=== PATIENT | male | born 1950 | race Caucasian/White ===

== ENCOUNTER 2018-10-30 08:44 | Day surgery (SDC) | payer MEDICARE, MEDICAID ==
[~2018-10-30] VITALS: Ht 170.2 cm; Wt 93.2 kg
[~2018-10-30 08:44] MED LIST: [UNRECOGNIZED DRUG - OTHER]
[2018-10-30] MEDS ORDERED: MIDAZolam 5mg/5ml vial ONE (09:01)
[2018-10-30] MEDS ORDERED: fentaNYL/PF 50MCG/1 ML 2ML syringe ONE (09:01)
[2018-10-30] MEDS ORDERED: LIDOcaine Viscous 15ml cup ONE (09:01)
[2018-10-30] MEDS ORDERED: AMLO5TAB PO (09:07)
[2018-10-30] MEDS ORDERED: LISI-600 PO (09:07)
[2018-10-30] MEDS ORDERED: TAMS0.4C32 PO (09:08)
[2018-10-30 09:25] VITALS: BP 131/87
[2018-10-30 11:06] VITALS: BP 108/68
[2018-10-30 11:16] VITALS: BP 119/74
[2018-10-30 11:25] VITALS: BP 111/74
[2018-10-30 11:35] VITALS: BP 125/61
== END 2018-10-30 11:50 | disposition home or self-care (01) ==
LOC: GI LAB 08:44
PROVIDERS: ATTEND Internal Medicine Gastroenterology
DX: K29.50 Unspecified chronic gastritis without bleeding (principal); K21.0 Gastro-esophageal reflux disease with esophagitis; K44.9 Diaphragmatic hernia without obstruction or gangrene; K22.2 Esophageal obstruction
CPT/HCPCS: 43239; 43450; J2250; J3010; J7030; 88305; 88312; 88342; 99152; A4620

== ENCOUNTER 2023-03-12 13:04 | Inpatient (IN) | payer MEDICARE, MEDICAID ==
[~2023-03-12] VITALS: Ht 172.7 cm; Wt 92.0 kg
[~2023-03-12 13:04] MED LIST changes: +AMLO5TAB PO; +LISI20TA28 PO; +TAMS0.4C32 PO; -[UNRECOGNIZED DRUG - OTHER]
[2023-03-12 13:45] LABS: BASOPHILS # (AUTO) 0.1 X10'3 (0-0.2); BASOPHILS % (AUTO) 0.6 % (0-1); EOSINOPHILS # (AUTO) 0.2 X10'3 (0-0.9); EOSINOPHILS % (AUTO) 2.2 % (0-6); HEMATOCRIT 41.2 % (42.0-52.0); HEMOGLOBIN 13.8 g/dl (14.0-17.9); LYMPHOCYTES # (AUTO) 1.6 X10'3 (1.1-4.8); LYMPHOCYTES % (AUTO) 16.5 % (21-51); MEAN CORPUSCULAR HEMOGLOBIN 29.9 PG (27.0-31.0); MEAN CORPUSCULAR HGB CONC 33.5 g/dL (33.0-36.5); MEAN CORPUSCULAR VOLUME 89.2 FL (78-98); MEAN PLATELET VOLUME 7.6 FL (7.4-10.4); MONOCYTES # (AUTO) 0.6 X10'3 (0-0.9); MONOCYTES % (AUTO) 6.5 % (2-12); NEUTROPHILS # (AUTO) 7.2 X10'3 (1.8-7.7); NEUTROPHILS % (AUTO) 74.2 % (42-75); PLATELET COUNT 262 X10'3 (140-440); RED BLOOD COUNT 4.62 X10'6 (4.70-6.10); RED CELL DISTRIBUTION WIDTH 14.4 % (11.5-14.5); WHITE BLOOD COUNT 9.7 X10'3 (4.5-11.0)
--- NOTE | 2023-03-12 13:53 | NUR ---
WHILE PERFORMEING GENERAL ASSESSMENT PT. WENT INTO HR OF 160-170'S. ASYMPTOMATIC DENIES ANY CP OR SOB. DR CABAN NOTIFIED
[2023-03-12 14:02] LABS: ALANINE AMINOTRANSFERASE 33 U/L (12-78); ALBUMIN/GLOBULIN RATIO 1.2 (1.1-1.5); ALKALINE PHOSPHATASE 76 IU/L (46-116); ANION GAP 11 (8-16); ASPARTATE AMINO TRANSFERASE 28 U/L (10-37); BILIRUBIN,TOTAL 0.7 MG/DL (0.1-1.0); BLOOD UREA NITROGEN 22 MG/DL (7-18); BUN/CREATININE RATIO 16.7 (10.0-20.0); CALCIUM 9.9 MG/DL (8.5-10.1); CHLORIDE 103 MMOL/L (99-107); CREATININE 1.32 MG/DL (0.60-1.10); GLUCOSE 104 MG/DL (70-104); POTASSIUM 4.3 MMOL/L (3.5-5.1); SODIUM 136 MMOL/L (135-145); TOTAL CARBON DIOXIDE 22.5 MMOL/L (24-32); TOTAL PROTEIN 7.4 G/DL (6.4-8.2); eGFR 53 ML/MIN
[2023-03-12] MEDS ORDERED: PERFLUTREN PROTEIN-A MICROSPHR (Optison) 0.22 MG/ML 3ML VIAL IV ONE (15:00)
[2023-03-12] MEDS ORDERED: potassium Cl 20 mEq SR tablet PO PRN ×2 (15:00)
[2023-03-12] MEDS ORDERED: magnesium 4gm in 100ml NS 100 ML IV PRN (15:00)
[2023-03-12] MEDS ORDERED: magnesium 2GM in 50ml NS 50 ML IV PRN (15:00)
[2023-03-12] MEDS ORDERED: acetaminophen 325mg tablet PO PRN (15:00)
[2023-03-12] MEDS ORDERED: mag hydrox/Alum hydrox/simeth 30ml oral suspension PO PRN (15:00)
[2023-03-12] MEDS ORDERED: magnesium Cl slow-release 64mg tablet PO PRN (15:00)
[2023-03-12] MEDS ORDERED: potassium Cl 40MEQ/1/2NS 520ml 520 ML IV PRN (15:00)
[2023-03-12] MEDS ORDERED: diltiazem-NS 100mg/100ml 100 ML IV ONE (15:00)
[2023-03-12] MEDS ORDERED: ondansetron/PF 4mg/2ml inj IV PRN (15:00)
[2023-03-12] MEDS ORDERED: diltiazem 5mg/ml 5ml inj. IV ONE (15:00)
[2023-03-12] MEDS ORDERED: aspirin 81mg tab.chew PO ONE (15:00)
[2023-03-12] MEDS ORDERED: magnesium hydroxide 30ml (MOM) UD suspension PO PRN (15:00)
--- NOTE | 2023-03-12 18:54 | NUR ---
pt eating dinner.
[2023-03-12] MEDS: K and/or MAG REPLACEMENT MC SCH (19:38)
[2023-03-12] MEDS: docusate sod 100mg capsule PO SCH (20:00)
[2023-03-12] MEDS: aspirin 325mg tablet, delayed-release (Ecotrin) PO SCH (20:49)
[2023-03-12 22:35] VITALS: BP 147/89; PULSE 78; RESP 25; TEMP 98.5; O2SAT 96
[2023-03-12 22:56] VITALS: RESP 25; O2SAT 96
[2023-03-12 23:00] VITALS: BP 136/76; PULSE 76; RESP 13
[2023-03-12 23:30] VITALS: BP 144/80; PULSE 69; RESP 20
[2023-03-13] VITALS (16 sets, daily range): BP systolic 109–143; BP diastolic 55–85; PULSE 60–105; RESP 11–33; TEMP 97.5–98; O2SAT 96–98
--- NOTE | 2023-03-13 00:36 | NUR ---
PAGER ID: [phone] MESSAGE: Shyam Gracia in [place] [id number] who is on cardizem drip for A flutter, is now SR with hr in the 60s and b/p in the 110s. drip has been stopped. Should i continue or hold it. Jazmín .u [id number]. 's order via phone is to reduce cardizem rate to 3mls and monitor pt. But stop the drip if HR goes lower than 60. At this time, cardizem has been reduced per MD's order. will continue to monitor pt
--- NOTE | 2023-03-13 06:35 | NUR ---
Problems reprioritized. Patient report given, questions answered & plan of care reviewed with Cris
[2023-03-13 07:30] LABS: BASOPHILS # (AUTO) 0.1 X10'3 (0-0.2); BASOPHILS % (AUTO) 0.9 % (0-1); EOSINOPHILS # (AUTO) 0.4 X10'3 (0-0.9); EOSINOPHILS % (AUTO) 4.4 % (0-6); HEMATOCRIT 40.2 % (42.0-52.0); HEMOGLOBIN 13.8 g/dl (14.0-17.9); LYMPHOCYTES # (AUTO) 1.7 X10'3 (1.1-4.8); LYMPHOCYTES % (AUTO) 19.5 % (21-51); MEAN CORPUSCULAR HEMOGLOBIN 30.4 PG (27.0-31.0); MEAN CORPUSCULAR HGB CONC 34.4 g/dL (33.0-36.5); MEAN CORPUSCULAR VOLUME 88.4 FL (78-98); MEAN PLATELET VOLUME 7.7 FL (7.4-10.4); MONOCYTES # (AUTO) 0.6 X10'3 (0-0.9); MONOCYTES % (AUTO) 7.2 % (2-12); PLATELET COUNT 242 X10'3 (140-440); RED BLOOD COUNT 4.55 X10'6 (4.70-6.10); RED CELL DISTRIBUTION WIDTH 14.5 % (11.5-14.5); WHITE BLOOD COUNT 8.8 X10'3 (4.5-11.0)
[2023-03-13 07:52] LABS: ALBUMIN 3.5 G/DL (3.4-5.0); ANION GAP 10 (8-16); BLOOD UREA NITROGEN 20 MG/DL (7-18); BUN/CREATININE RATIO 19.2 (10.0-20.0); CALCIUM 9.8 MG/DL (8.5-10.1); CHLORIDE 105 MMOL/L (99-107); CREATININE 1.04 MG/DL (0.60-1.10); GLUCOSE 105 MG/DL (70-104); MAGNESIUM 1.9 MG/DL (1.5-2.4); POTASSIUM 4.3 MMOL/L (3.5-5.1); SODIUM 137 MMOL/L (135-145); TOTAL CARBON DIOXIDE 22.1 MMOL/L (24-32); eGFR 70 ML/MIN
[2023-03-13] MEDS: K and/or MAG REPLACEMENT MC SCH (08:00)
[2023-03-13] MEDS: docusate sod 100mg capsule PO SCH (08:00)
--- NOTE | 2023-03-13 08:43 | NUR ---
Pt getting ECHO done now
[2023-03-13] MEDS ORDERED: diltiazem CD 180mg cap (once-daily) PO SCH (09:00)
[2023-03-13] MEDS: aspirin 325mg tablet, delayed-release (Ecotrin) PO SCH (09:19)
[2023-03-13] MEDS ORDERED: DILT180C66 PO (16:21)
--- NOTE | 2023-03-13 16:29 | NUR ---
PAGER ID: [phone] MESSAGE: Pt Shyam in rm [id number] would like to discharge home today. His HR is currently 67 his BP is currently 120/81. He denies all symptoms. He's off the Card gtt. His ECHO was done. Please let me know if he can go. Thank you. JIHAN Lynch [id number]
--- NOTE | 2023-03-13 18:19 | NUR ---
Pt AOX4, VSS. Pt's PIV discontinued with cannula intact. Pt denies CP, SOB. Pt's discharge paperwork reviewed with patient and family and questions answered. Pt in NAD.
== END 2023-03-13 18:30 | disposition home or self-care (01) | DRG 310 ==
LOC: ER 13:05 → OBSVTOIN 15:03 → ED HOLD 15:03 → EDBEDREQ 22:10 → PCU 3S 22:27
PROVIDERS: ADMIT Family Medicine; ATTEND Family Medicine
DX: I48.92 Unspecified atrial flutter (principal); I10 Essential (primary) hypertension; R00.0 Tachycardia, unspecified; I34.81 Nonrheumatic mitral (valve) annulus calcification; N40.0 Benign prostatic hyperplasia without lower urinary tract symptoms; Z79.899 Other long term (current) drug therapy; Z91.040 Latex allergy status
CPT/HCPCS: 36415; 71045; 80048; 80053; 83735; 83880; 84443; 84484; 85025; 87081; 93005; 93306; 99285; G0378; J3490

== ENCOUNTER 2023-12-24 09:01 | Outpatient (CLI) | payer MEDICARE, MEDICAID ==
[~2023-12-24 09:01] MED LIST changes: -AMLO5TAB PO; -LISI20TA28 PO
== END 2023-12-24 23:59 | disposition home or self-care (01) ==
LOC: RAD 09:01
PROVIDERS: ATTEND Urology
DX: N45.1 Epididymitis (principal); N43.41 Spermatocele of epididymis, single; N50.82 Scrotal pain
CPT/HCPCS: 76870; 93976

== ENCOUNTER 2024-06-24 07:06 | Emergency (ER) | payer MEDICARE, MEDICAID ==
[~2024-06-24] VITALS: Ht 172.7 cm; Wt 99.5 kg
[2024-06-24 07:35] VITALS: BP 123/80; TEMP 97.6
[2024-06-24] MEDS: dexamethasone sod phosphate 10mg/ml inj PO STA (09:13)
[2024-06-24 09:31] VITALS: PULSE 71; RESP 18; O2SAT 98
== END 2024-06-24 09:34 | disposition home or self-care (01) ==
LOC: ER 07:07
DX: J20.9 Acute bronchitis, unspecified (principal); Z20.822 Contact with and (suspected) exposure to COVID-19; I10 Essential (primary) hypertension; I25.2 Old myocardial infarction; F32.A Depression, unspecified; Z91.040 Latex allergy status; Z79.899 Other long term (current) drug therapy
CPT/HCPCS: 36415; 71045; 87502; 87503; 87811; 99284; J1100

== ENCOUNTER 2024-06-27 07:34 | Emergency (ER) | payer MEDICARE, MEDICAID ==
[~2024-06-27] VITALS: Ht 172.7 cm; Wt 101.2 kg
[2024-06-27 07:37] VITALS: TEMP 97.8
[2024-06-27] MEDS ORDERED: AZIT500T PO (08:05)
[2024-06-27 08:12] VITALS: BP 132/86; PULSE 64; RESP 16; O2SAT 100
== END 2024-06-27 08:13 | disposition home or self-care (01) ==
LOC: ER 07:35
DX: J32.9 Chronic sinusitis, unspecified (principal); I10 Essential (primary) hypertension; I25.2 Old myocardial infarction; Z91.040 Latex allergy status; Z79.2 Long term (current) use of antibiotics; Z79.899 Other long term (current) drug therapy
CPT/HCPCS: 99283